=== PATIENT | male | born 1980 | race Caucasian/White ===

== ENCOUNTER 2021-05-19 20:11 | Inpatient (IN) ==
[2021-05-19 21:44] LABS: Rapid Strep Molecular Negative (Negative)
[2021-05-19 21:48] LABS: C Reactive Protein 64.64 mg/L (<8.01)
[2021-05-19 21:51] LABS: Influenza A Molecular Negative (Negative); Influenza B Molecular Negative (Negative)
[2021-05-19 22:01] LABS: Hematocrit 18 % (42-52); Hemoglobin 4.9 g/dL (14.0-18.0); Mean Corpuscular HGB Conc 27 g/dL (31-36); Mean Corpuscular Hemoglobin 19 pg (27-31); Mean Corpuscular Volume 70 fL (80-94); Mean Platelet Volume 7.1 fL (7.4-10.4); Platelet Count 385 10^3/uL (150-450); Red Blood Count 2.59 10^6 /uL (4.18-5.48); Red Cell Distribution Width 23 % (10-15); White Blood Count 13.6 10^3/uL (3.5-10.8)
[2021-05-19 22:16] LABS: ALT 10 U/L (7-52); AST 12 U/L (13-39); Albumin 3.4 g/dL (3.2-5.2); Albumin/Globulin Ratio 0.8 (1-3); Alkaline Phosphatase 52 U/L (35-149); Anion Gap 7 mmol/L (2-11); Blood Urea Nitrogen 19 mg/dL (6-24); CO2 Carbon Dioxide 27 mmol/L (22-32); Calcium 8.8 mg/dL (8.6-10.3); Chloride 102 mmol/L (101-111); EGFR African American 95.8 (>60); EGFR Non-African American 79.2 (>60); Globulin 4.5 g/dL (2-4); Glucose 89 mg/dL (70-100); Potassium 3.4 mmol/L (3.5-5.0); Sodium 136 mmol/L (135-145); Total Protein 7.9 g/dL (6.4-8.9)
[2021-05-19] MEDS ORDERED: Iohexol 300 (CONTRAST) 10 ML SDV IV ONE (22:20)
[2021-05-19 22:36] LABS: Activated Partial Thrombo Time 25.7 seconds (26.0-38.0); INR 1.16 (0.86-1.15)
[2021-05-19 22:40] LABS: ABS Eosinophils 0.1 10^3/ul (0-0.6); ABS Lymphocytes 2.4 10^3/ul (1.0-4.8); ABS Monocytes 1.5 10^3/ul (0-0.8); ABS Neutrophils 9.6 10^3/ul (1.5-7.7); Anisocytosis 3+; Eosinophil % 0.6 %; Hypochromasia 1+; Lymphocyte % 17.7 %; Nucleated Red Blood Cells % 0.1; Polychromasia 1+
[2021-05-19] MEDS ORDERED: Ondansetron 4 mg VIAL 2 MG/ML 2 ml VIAL IV ONE (23:40)
[2021-05-20 02:05] LABS: Urine Appearance Clear; Urine Bilirubin Negative (Negative); Urine Blood Negative (Negative); Urine Color Yellow; Urine Glucose Negative (Negative); Urine Ketones Negative (Negative); Urine Nitrite Negative (Negative); Urine Protein Negative (Negative); Urine Specific Gravity 1.013 (1.002-1.030); Urine Urobilinogen Negative (Negative)
[2021-05-20 03:09] LABS: Transferrin 357 mg/dL (203-362)
[2021-05-20 03:10] LABS: Total Iron Binding Capacity 500 mcg/dL (250-450)
[2021-05-20 03:32] LABS: Ferritin 6.4 ng/mL (24-336)
[2021-05-20 03:35] LABS: Folate 8.62 ng/mL (5.90-24.80)
[2021-05-20 03:39] LABS: Vitamin D Total 25(OH) 8.2 ng/mL (20-50)
[2021-05-20 04:13] LABS: % Iron Saturation 4 % (15-55); Iron < 20 ug/dL (50-212); Unsaturated Iron Binding < 485 ug/dL
[2021-05-20 08:24] LABS: Hematocrit 21 % (42-52); Hemoglobin 5.9 g/dL (14.0-18.0); Mean Corpuscular HGB Conc 29 g/dL (31-36); Mean Corpuscular Hemoglobin 21 pg (27-31); Mean Corpuscular Volume 73 fL (80-94); Mean Platelet Volume 6.9 fL (7.4-10.4); Platelet Count 338 10^3/uL (150-450); Red Blood Count 2.82 10^6 /uL (4.18-5.48); Red Cell Distribution Width 24 % (10-15); White Blood Count 10.5 10^3/uL (3.5-10.8)
[2021-05-20 08:33] LABS: Calcium 8.7 mg/dL (8.6-10.3); EGFR African American 109.2 (>60); EGFR Non-African American 90.2 (>60); Potassium 3.7 mmol/L (3.5-5.0)
[2021-05-20] MEDS: oxyCODONE/Acetamin 5/325 mg TAB PO PRN ×3 (09:44→22:40)
[2021-05-20] MEDS: Venlafaxine XR 75 mg PO SCH ×2 (09:45→09:53)
[2021-05-20] MEDS: Potassium Chlor 20 meq TAB.ER PO ONE ×2 (09:46→09:54)
[2021-05-20] MEDS: Nystatin TOP POWDER 15 GM BTL TOPICAL SCH ×2 (09:46→22:40)
[2021-05-20] MEDS: Nystatin SUSPENSION 100,000 UNITS/ML UDC PO SCH ×6 (09:46→20:33)
[2021-05-20] MEDS: Benzocaine/Menthol LOZ MT PRN ×2 (10:01→20:33)
[2021-05-20 11:00] LABS: ABS Eosinophils 0.1 10^3/ul (0-0.6); ABS Lymphocytes 1.6 10^3/ul (1.0-4.8); ABS Monocytes 1.3 10^3/ul (0-0.8); ABS Neutrophils 7.5 10^3/ul (1.5-7.7); Eosinophil % 0.5 %; Lymphocyte % 15.4 %; Nucleated Red Blood Cells % 0.2
[2021-05-20 13:17] LABS: Vitamin B12 564 pg/mL (180-914)
[2021-05-20 13:27] LABS: TSH Ultra Thyroid Stim Horm 1.57 mcIU/mL (0.34-5.60)
[2021-05-20] MEDS: Magic MouthWash2-BEN/MAAL/LIDO/NYST 240 ML BTL (alt formulation) SWISH SPIT SCH ×3 (14:42→20:28)
[2021-05-20 16:39] LABS: Hematocrit 22 % (42-52); Hemoglobin 6.3 g/dL (14.0-18.0)
[2021-05-20 20:17] LABS: Hematocrit 22 % (42-52); Hemoglobin 6.1 g/dL (14.0-18.0)
[2021-05-20] MEDS: Pantoprazole VIAL 40 MG VIAL IV SCH (20:33)
[2021-05-20 23:20] LABS: HIV 4th Generation Nonreactive (Nonreactive)
[2021-05-21 06:23] LABS: Hematocrit 21 % (42-52); Hemoglobin 6.4 g/dL (14.0-18.0); Mean Corpuscular HGB Conc 30 g/dL (31-36); Mean Corpuscular Hemoglobin 23 pg (27-31); Mean Corpuscular Volume 76 fL (80-94); Mean Platelet Volume 6.8 fL (7.4-10.4); Platelet Count 286 10^3/uL (150-450); Red Blood Count 2.81 10^6 /uL (4.18-5.48); Red Cell Distribution Width 25 % (10-15); White Blood Count 8.9 10^3/uL (3.5-10.8)
[2021-05-21] MEDS: Magic MouthWash2-BEN/MAAL/LIDO/NYST 240 ML BTL (alt formulation) SWISH SPIT SCH (08:13)
[2021-05-21] MEDS: Venlafaxine XR 75 mg PO SCH (08:13)
[2021-05-21] MEDS: Nystatin SUSPENSION 100,000 UNITS/ML UDC PO SCH ×4 (08:14→21:07)
[2021-05-21] MEDS: Pantoprazole VIAL 40 MG VIAL IV SCH ×2 (08:14→21:07)
[2021-05-21] MEDS: Nystatin TOP POWDER 15 GM BTL TOPICAL SCH ×2 (12:41→21:00)
[2021-05-21] MEDS: oxyCODONE/Acetamin 5/325 mg TAB PO PRN ×2 (12:41→21:09)
[2021-05-21] MEDS: Magic MouthWash2-BEN/MAAL/LIDO/NYST 240 ML BTL (alt formulation) SWISH SWAL SCH ×3 (12:42→21:03)
[2021-05-21] MEDS ORDERED: Cholecalciferol (VIT D3) 1,000 unit TAB ONE (15:30)
[2021-05-21] MEDS: Iron Sucrose 200 MG in NS 0.9% 100 ml BAG 100 ML IVPB SCH (15:38)
[2021-05-21] MEDS: Cholecalciferol (VIT D3) 1,000 unit TAB PO SCH (15:38)
[2021-05-21 16:25] LABS: Hematocrit 24 % (42-52); Hemoglobin 7.4 g/dL (14.0-18.0)
[2021-05-21 22:00] LABS: Hematocrit 27 % (42-52)
[2021-05-22] MEDS: oxyCODONE/Acetamin 5/325 mg TAB PO PRN ×3 (05:25→22:05)
[2021-05-22 08:13] LABS: Hematocrit 26 % (42-52); Hemoglobin 7.6 g/dL (14.0-18.0); Mean Corpuscular HGB Conc 29 g/dL (31-36); Mean Corpuscular Hemoglobin 23 pg (27-31); Mean Corpuscular Volume 78 fL (80-94); Mean Platelet Volume 6.6 fL (7.4-10.4); Platelet Count 299 10^3/uL (150-450); Red Blood Count 3.33 10^6 /uL (4.18-5.48); Red Cell Distribution Width 25 % (10-15); White Blood Count 9.3 10^3/uL (3.5-10.8)
[2021-05-22 08:22] LABS: Calcium 8.6 mg/dL (8.6-10.3); EGFR African American 107.8 (>60); EGFR Non-African American 89.1 (>60); Potassium 3.9 mmol/L (3.5-5.0)
[2021-05-22] MEDS: Iron Sucrose 200 MG in NS 0.9% 100 ml BAG 100 ML IVPB SCH (10:05)
[2021-05-22] MEDS: Nystatin SUSPENSION 100,000 UNITS/ML UDC PO SCH ×3 (10:05→19:31)
[2021-05-22] MEDS: Venlafaxine XR 75 mg PO SCH (10:05)
[2021-05-22] MEDS: Pantoprazole VIAL 40 MG VIAL IV SCH ×2 (10:05→21:00)
[2021-05-22] MEDS: Cholecalciferol (VIT D3) 1,000 unit TAB PO SCH (10:07)
[2021-05-22] MEDS: Nystatin TOP POWDER 15 GM BTL TOPICAL SCH ×2 (10:15→21:01)
[2021-05-22] MEDS: Magic MouthWash2-BEN/MAAL/LIDO/NYST 240 ML BTL (alt formulation) SWISH SWAL SCH ×4 (10:16→19:36)
[2021-05-22 10:37] LABS: EBV Capsid Ag IgG Ab Negative (Negative); EBV Capsid Ag IgM Ab Negative (Negative); Epstein-Barr Nuclear Antigen Negative (Negative)
[2021-05-22 18:54] LABS: Hematocrit 24 % (42-52); Hemoglobin 7.2 g/dL (14.0-18.0)
[2021-05-22 20:38] LABS: Lead,Venous, B 1.2 mcg/dL (<5.0); Submitting Laboratory Phone 6072744474
[2021-05-23] MEDS: Benzocaine/Menthol LOZ MT PRN (02:18)
[2021-05-23] MEDS: oxyCODONE/Acetamin 5/325 mg TAB PO PRN ×4 (04:34→21:43)
[2021-05-23 05:53] LABS: Hematocrit 26 % (42-52); Hemoglobin 7.6 g/dL (14.0-18.0); Mean Corpuscular HGB Conc 29 g/dL (31-36); Mean Corpuscular Hemoglobin 23 pg (27-31); Mean Corpuscular Volume 80 fL (80-94); Mean Platelet Volume 6.8 fL (7.4-10.4); Platelet Count 293 10^3/uL (150-450); Red Blood Count 3.28 10^6 /uL (4.18-5.48); Red Cell Distribution Width 26 % (10-15); White Blood Count 9.6 10^3/uL (3.5-10.8)
[2021-05-23 06:06] LABS: Calcium 8.5 mg/dL (8.6-10.3); EGFR African American 113.4 (>60); EGFR Non-African American 93.7 (>60); Potassium 3.8 mmol/L (3.5-5.0)
[2021-05-23] MEDS: Pantoprazole VIAL 40 MG VIAL IV SCH ×2 (08:32→21:41)
[2021-05-23] MEDS: Nystatin TOP POWDER 15 GM BTL TOPICAL SCH ×2 (08:33→21:44)
[2021-05-23] MEDS: Iron Sucrose 200 MG in NS 0.9% 100 ml BAG 100 ML IVPB SCH (08:33)
[2021-05-23] MEDS: Magic MouthWash2-BEN/MAAL/LIDO/NYST 240 ML BTL (alt formulation) SWISH SWAL SCH ×4 (08:33→21:44)
[2021-05-23] MEDS: Venlafaxine XR 75 mg PO SCH (08:34)
[2021-05-23] MEDS: Cholecalciferol (VIT D3) 1,000 unit TAB PO SCH (08:35)
[2021-05-23 13:56] LABS: Zinc 0.47 mcg/mL (0.66-1.10)
[2021-05-24] MEDS: oxyCODONE/Acetamin 5/325 mg TAB PO PRN ×4 (03:56→23:04)
[2021-05-24 09:03] LABS: Hematocrit 25 % (42-52); Hemoglobin 7.4 g/dL (14.0-18.0); Mean Corpuscular HGB Conc 30 g/dL (31-36); Mean Corpuscular Hemoglobin 24 pg (27-31); Mean Corpuscular Volume 81 fL (80-94); Platelet Count 267 10^3/uL (150-450); Red Blood Count 3.12 10^6 /uL (4.18-5.48); Red Cell Distribution Width 27 % (10-15); White Blood Count 7.9 10^3/uL (3.5-10.8)
[2021-05-24 09:19] LABS: Calcium 8.5 mg/dL (8.6-10.3); EGFR African American 106.5 (>60); Potassium 3.9 mmol/L (3.5-5.0)
[2021-05-24] MEDS ORDERED: Iron Sucrose 20 MG/ML 5 ML VIAL IV PUSH ONE (09:28)
[2021-05-24] MEDS ORDERED: Iron Sucrose 200 MG in NS 0.9% 100 ml IVPB ONE (10:00)
[2021-05-24] MEDS: Cholecalciferol (VIT D3) 1,000 unit TAB PO SCH (10:31)
[2021-05-24] MEDS: Venlafaxine XR 75 mg PO SCH (10:32)
[2021-05-24] MEDS: Pantoprazole VIAL 40 MG VIAL IV SCH ×2 (10:33→21:38)
[2021-05-24] MEDS: Magic MouthWash2-BEN/MAAL/LIDO/NYST 240 ML BTL (alt formulation) SWISH SWAL SCH ×4 (10:38→23:03)
[2021-05-24] MEDS: Nystatin TOP POWDER 15 GM BTL TOPICAL SCH ×2 (10:39→21:38)
[2021-05-24] MEDS: Collagenase 250 units/gm OINT 1 tube TOPICAL PRN (14:22)
[2021-05-25] MEDS: oxyCODONE/Acetamin 5/325 mg TAB PO PRN ×4 (05:58→23:54)
[2021-05-25] MEDS: Magic MouthWash2-BEN/MAAL/LIDO/NYST 240 ML BTL (alt formulation) SWISH SWAL SCH ×5 (06:00→20:41)
[2021-05-25 06:34] LABS: Hematocrit 26 % (42-52); Hemoglobin 7.7 g/dL (14.0-18.0); Mean Corpuscular HGB Conc 30 g/dL (31-36); Mean Corpuscular Hemoglobin 24 pg (27-31); Mean Corpuscular Volume 81 fL (80-94); Mean Platelet Volume 6.7 fL (7.4-10.4); Platelet Count 263 10^3/uL (150-450); Red Blood Count 3.17 10^6 /uL (4.18-5.48); Red Cell Distribution Width 28 % (10-15); White Blood Count 7.1 10^3/uL (3.5-10.8)
[2021-05-25] MEDS: Cholecalciferol (VIT D3) 1,000 unit TAB PO SCH (09:12)
[2021-05-25] MEDS: Venlafaxine XR 75 mg PO SCH (09:13)
[2021-05-25] MEDS: Nystatin TOP POWDER 15 GM BTL TOPICAL SCH ×2 (09:14→20:42)
[2021-05-25] MEDS: Pantoprazole VIAL 40 MG VIAL IV SCH ×2 (09:16→20:40)
[2021-05-25] MEDS: Collagenase 250 units/gm OINT 1 tube TOPICAL PRN (14:01)
[2021-05-25] MEDS ORDERED: Iron Sucrose 200 MG in NS 0.9% 100 ml BAG 100 ML IVPB ONE (17:13)
[2021-05-25] MEDS: Carbamide Peroxide 6.5% OTIC 15 ML BTL BOTH EARS SCH (22:23)
[2021-05-26] MEDS: oxyCODONE/Acetamin 5/325 mg TAB PO PRN ×2 (06:34→12:39)
[2021-05-26] MEDS: Pantoprazole VIAL 40 MG VIAL IV SCH (10:02)
[2021-05-26] MEDS: Magic MouthWash2-BEN/MAAL/LIDO/NYST 240 ML BTL (alt formulation) SWISH SWAL SCH ×2 (10:04→14:24)
[2021-05-26] MEDS: Carbamide Peroxide 6.5% OTIC 15 ML BTL BOTH EARS SCH (10:04)
[2021-05-26] MEDS: Venlafaxine XR 75 mg PO SCH (10:04)
[2021-05-26] MEDS: Cholecalciferol (VIT D3) 1,000 unit TAB PO SCH (10:04)
[2021-05-26 12:30] VITALS: BP 114/40
[2021-05-26] MEDS: Nystatin TOP POWDER 15 GM BTL TOPICAL SCH (12:40)
[2021-05-26] MEDS ORDERED: COVID-19 VACCINE, AD26(JANSSEN)/PF 0.5 ML IM ONE (15:00)
[2021-05-26] MEDS: Collagenase 250 units/gm OINT 1 tube TOPICAL PRN (15:17)
== END 2021-05-26 16:30 | disposition home or self-care (01) | DRG 812 ==
LOC: ED 20:11 → INTOOBSV 05-20 02:55 → MEDTELE 05-20 02:55 → MED 05-22 21:27
PROVIDERS: ADMIT Internal Medicine; ATTEND Internal Medicine